=== PATIENT | female | born 1980 | race African-American/Black ===

== ENCOUNTER 2017-08-16 16:40 | Emergency (ER) | payer MEDICAID, OTHER ==
[~2017-08-16 16:40] MED LIST: ISOVUE-370 76%-LOCM 1 ML ONE
[2017-08-16 17:24] LABS: #Basophils 0.1 thou/uL (0.0-0.2); #Eosinphils 0.2 thou/uL (0.0-0.7); #Lymphocytes 2.6 thou/uL (1.20-3.40); #Monocytes 0.5 thou/uL (0.11-0.59); #Neutrophils 5.5 thou/uL (1.40-6.50); %Basophils 0.8 % (0.0-1.0); %Eosinophils 1.7 % (0.0-10.0); %Lymphocytes 29.7 % (21.0-51.0); %Monocytes 5.9 % (0.0-10.0); %Neutrophils 61.9 % (42.0-75.0); Hemoglobin 14.5 g/dL (12.0-16.0); Mean Corpuscular HGB CONC 34.5 g/dL (32.0-36.0); Mean Corpuscular Hemoglobin 30.6 pg (27.0-31.0); Mean Corpuscular Volume 88.7 fL (78.0-98.0); Mean Platelet Volume 8.3 fL (7.4-10.4); Platelet Count 283 thou/uL (130-400); RBC Distribution Width 12.6 % (11.5-14.5); Red Blood Cell (RBC) Count 4.74 mill/uL (4.20-5.40); White Blood Cell (WBC) Count 8.8 thou/uL (4.8-10.8)
[2017-08-16 17:54] LABS: ALT (SGPT) 16 U/L (8-55); AST (SGOT) 23 U/L (5-34); Albumin 4.3 g/dL (3.5-5.0); Alkaline Phosphatase 86 U/L (40-150); Anion Gap 16 mmol/L (10-20); BUN (Urea Nitrogen) 12 mg/dL (7.0-18.7); Bilirubin, Total 0.3 mg/dL (0.2-1.2); CK (CPK) 87 U/L (29-168); Calc. Creatinine Clearance 0 mL/min (70-130); Calcium 9.8 mg/dL (7.8-10.44); Carbon Dioxide 20 mmol/L (22-29); Chloride 104 mmol/L (98-107); Estimated GFR-MDRD Greater than 90; Glucose 117 mg/dL (70-105); Potassium 4.3 mmol/L (3.5-5.1); Protein, Total 8.3 g/dL (6.0-8.3); Sodium 136 mmol/L (136-145)
[2017-08-16 17:55] LABS: CKMB 0.6 ng/mL (0-6.6); Troponin I Less than 0.010 ng/mL (< 0.028)
--- NOTE | 2017-08-16 18:33 | RAD ---
CHEST ONE VIEW: HISTORY: Pain. COMPARISON: 05/27/2016 FINDINGS: Normal cardiac silhouette. The pulmonary vessels and hilum are normal. The costophrenic angles are clear. Scarring in the right lung base is noted. No pneumothorax or osseous abnormalities. IMPRESSION: No acute cardiopulmonary process. POS: [facility]
--- NOTE | 2017-08-16 23:18 | CT ---
CT ANGIOGRAM CHEST: HISTORY: Difficulty breathing. Intermittent chest pain. Lightheadedness and headache. COMPARISON: 02/01/2016 TECHNIQUE: A CT angiogram of the chest is performed in the axial plane. Three-dimensional reformatted images ar e submitted for interpretation. FINDINGS: No mediastinal mass, lymphadenopathy, or hematoma. Heart size is within normal limits. No significa nt pericardial fluid. The thoracic aorta and upper abdominal aorta have a normal caliber. No periao rtic fat stranding. The visualized upper solid organs are unremarkable. The trachea and central bronchi are patent. There are patchy ground glass opacities throughout the l edna parenchyma. There is evidence of blebs in the superior segment of the right lower lobe, with adj acent parenchymal opacification due to scar. These findings are similar to the previous CT. There i s no pleural effusion or pneumothorax. There are no lytic or blastic lesions in the osseous structures. Adequate contrast opacification in the pulmonary arterial system, to the level of the segmental arter ies. No filling defect to suggest thromboembolism. IMPRESSION: 1. No evidence of pulmonary artery embolism to the level of the segmental arteries. 2. Ground glass opacities. Correlate for pulmonary edema. 3. Chronic changes in the right lower lobe. POS: [facility]
== END 2017-08-16 21:10 | disposition home or self-care (01) ==
LOC: ERS 16:40
DX: R07.89 Other chest pain (principal); Z71.6 Tobacco abuse counseling; J45.909 Unspecified asthma, uncomplicated; F17.210 Nicotine dependence, cigarettes, uncomplicated
CPT/HCPCS: 71045; 71275; 80053; 82553; 84484; 85025; 85379; 93005; 96360; 96361; 99406

== ENCOUNTER 2018-01-10 12:23 | Emergency (ER) | payer MEDICAID, SELFPAY ==
[2018-01-10 13:02] LABS: #Basophils 0.1 thou/uL (0.0-0.2); #Eosinphils 0.1 thou/uL (0.0-0.7); #Lymphocytes 1.7 thou/uL (1.20-3.40); #Monocytes 0.4 thou/uL (0.11-0.59); #Neutrophils 3.6 thou/uL (1.40-6.50); %Eosinophils 2.1 % (0.0-10.0); %Lymphocytes 29.4 % (21.0-51.0); %Monocytes 7.2 % (0.0-10.0); %Neutrophils 60.3 % (42.0-75.0); Hemoglobin 14.7 g/dL (12.0-16.0); Mean Corpuscular HGB CONC 34.8 g/dL (32.0-36.0); Mean Corpuscular Hemoglobin 30.5 pg (27.0-31.0); Mean Corpuscular Volume 87.6 fL (78.0-98.0); Mean Platelet Volume 8.6 fL (7.4-10.4); Platelet Count 285 thou/uL (130-400); RBC Distribution Width 12.9 % (11.5-14.5); Red Blood Cell (RBC) Count 4.83 mill/uL (4.20-5.40); White Blood Cell (WBC) Count 5.9 thou/uL (4.8-10.8)
[2018-01-10 13:21] LABS: Troponin I Less than 0.010 ng/mL (< 0.028)
[2018-01-10 13:26] LABS: ALT (SGPT) 32 U/L (8-55); AST (SGOT) 24 U/L (5-34); Albumin 4.2 g/dL (3.5-5.0); Alkaline Phosphatase 81 U/L (40-150); Anion Gap 13 mmol/L (10-20); BUN (Urea Nitrogen) 8 mg/dL (7.0-18.7); Bilirubin, Total 0.6 mg/dL (0.2-1.2); CK (CPK) 140 U/L (29-168); Calc. Creatinine Clearance 0 mL/min (70-130); Calcium 9.2 mg/dL (7.8-10.44); Carbon Dioxide 24 mmol/L (22-29); Chloride 103 mmol/L (98-107); Estimated GFR-MDRD Greater than 90; Glucose 106 mg/dL (70-105); Potassium 3.6 mmol/L (3.5-5.1); Protein, Total 8.2 g/dL (6.0-8.3); Sodium 136 mmol/L (136-145)
--- NOTE | 2018-01-10 13:57 | RAD ---
CHEST 1 VIEW PORTABLE: HISTORY: A 37-year-old female with a history of increasing shortness of breath for several says, dyspnea. COMPARISON: 08/16/2017. FINDINGS: Monitor leads overlie the chest. Stable vertically oriented linear parenchymal changes in the right lower lung zone unchanged from prior study. No confluent pneumonia, overt edema, or pleural effusion . Stable chronic changes in the right base. No other significant acute process. Unchanged from 08/17/19 18. POS: [facility]
== END 2018-01-10 14:32 | disposition home or self-care (01) ==
LOC: ERS 12:23
DX: J20.9 Acute bronchitis, unspecified (principal); J45.909 Unspecified asthma, uncomplicated; F17.210 Nicotine dependence, cigarettes, uncomplicated
CPT/HCPCS: 71045; 80053; 82553; 83690; 84484; 85025; 85379; 93005; 94640; 94664; J7620

== ENCOUNTER 2018-10-25 18:30 | Emergency (ER) | payer OTHER, SELFPAY ==
[2018-10-25 19:19] LABS: #Eosinphils 0.2 thou/uL (0.0-0.7); #Lymphocytes 2.7 thou/uL (1.20-3.40); #Monocytes 0.5 thou/uL (0.11-0.59); #Neutrophils 4.3 thou/uL (1.40-6.50); %Basophils 0.6 % (0.0-1.0); %Eosinophils 2.2 % (0.0-10.0); %Monocytes 6.7 % (0.0-10.0); %Neutrophils 55.4 % (42.0-75.0); Hemoglobin 15.2 g/dL (12.0-16.0); Mean Corpuscular HGB CONC 35.4 g/dL (32.0-36.0); Mean Corpuscular Hemoglobin 31.2 pg (27.0-31.0); Mean Corpuscular Volume 88.3 fL (78.0-98.0); Mean Platelet Volume 8.1 fL (7.4-10.4); Platelet Count 316 thou/uL (130-400); RBC Distribution Width 12.5 % (11.5-14.5); Red Blood Cell (RBC) Count 4.88 mill/uL (4.20-5.40); White Blood Cell (WBC) Count 7.8 thou/uL (4.8-10.8)
--- NOTE | 2018-10-25 19:26 | RAD ---
1 VIEW CHEST: Date: 10/25/18 HISTORY: Pain. COMPARISON: 01/10/18. FINDINGS: Normal cardiac silhouette. Pulmonary vessels and hilum are normal. Costophrenic angles are clear. Int erval scarring in right lung base. No pneumothorax or acute osseous abnormalities. IMPRESSION: No acute cardiopulmonary process. POS: [facility]
[2018-10-25 19:34] LABS: ALT (SGPT) 18 U/L (8-55); AST (SGOT) 16 U/L (5-34); Albumin 4.3 g/dL (3.5-5.0); Alkaline Phosphatase 89 U/L (40-150); Anion Gap 9 mmol/L (10-20); BUN (Urea Nitrogen) 8 mg/dL (7.0-18.7); Bilirubin, Total 0.3 mg/dL (0.2-1.2); CK (CPK) 102 U/L (29-168); Calc. Creatinine Clearance 0 mL/min (70-130); Calcium 9.7 mg/dL (7.8-10.44); Carbon Dioxide 30 mmol/L (22-29); Chloride 101 mmol/L (98-107); Estimated GFR-MDRD 85; Globulin 3.7 g/dL (2.4-3.5); Glucose 112 mg/dL (70-105); Potassium 3.4 mmol/L (3.5-5.1); Sodium 137 mmol/L (136-145)
[2018-10-25 19:47] LABS: BHCG - Serum Negative (NEGATIVE); Pregs Control Background? CLEAR/WHITE (CLR/WHITE); Pregs Control Bar Appear? YES (CONTROL BAR)
--- NOTE | 2018-10-25 20:58 | CT ---
CT ANGIOGRAM CHEST: HISTORY: Intermittent chest pain, radiating to the left arm. COMPARISON: 08/16/2017 TECHNIQUE: CT angiogram of the chest is performed in the axial plane. Three-dimensional reformatted images are submitted for interpretation. FINDINGS: No mediastinal mass, lymphadenopathy or hematoma. The visualized inferior neck and axilla are unrema rkable. Heart size is within normal limits. No pericardial fluid. The visualized aorta has a shubham l caliber. No periaortic fat stranding. The visualized upper abdomen is unremarkable. The trachea and central bronchi are patent. Patchy ground glass opacities are once again demonstrate d. There is scarring in the right lower lobe. Atelectatic changes in both lung bases are noted. No masses or consolidation in the lung parenchyma. Pleural effusion: None. Pneumothorax: None. Osseous structures: There are no lytic or blastic lesions in the osseous structures. Limited evaluation of the pulmonary arterial system due to timing of contrast bolus. There is adequa te contrast opacification of the central pulmonary arterial system. Evaluation of the lobar, segment , and subsegmental arteries is limited. IMPRESSION: 1. No evidence of pulmonary artery embolism to the level of the central pulmonary arteries. The lob ar, segmental and subsegmental arteries cannot be assessed due to poor timing of bolus. 2. Chronic change in the lung parenchyma. Stable ground glass opacities. Scarring in the right low er lobe. POS: [facility]
[2018-10-25 21:05] LABS: Troponin I Less than 0.010 ng/mL (< 0.028)
--- NOTE | 2018-10-30 15:26 | EKG ---
Test Reason : Blood Pressure : / mmHG Vent. Rate : 088 BPM Atrial Rate : 088 BPM P-R Int : 110 ms QRS Dur : 078 ms QT Int : 346 ms P-R-T Axes : 054 040 104 degrees QTc Int : 418 ms Sinus rhythm with short DE Septal infarct , age undetermined T wave abnormality, consider anterolateral ischemia Abnormal ECG Confirmed by NICOLE SCHULTZ, PAYTON ([id number]), metropolitan editor BLANCHE KRAUS ([id number]) on 10/30/2018 3:25:29 PM Referred By: Confirmed By:PAYTON RIVERA MD
== END 2018-10-25 21:30 | disposition home or self-care (01) ==
LOC: ERS 18:30
DX: R07.89 Other chest pain (principal); J45.909 Unspecified asthma, uncomplicated; F17.210 Nicotine dependence, cigarettes, uncomplicated
CPT/HCPCS: 36415; 71045; 71275; 80053; 82550; 84484; 84703; 85025; 85379; 93005; 96360; Q9966

== ENCOUNTER 2018-11-15 06:50 | Outpatient (CLI) | payer OTHER ==
--- NOTE | 2018-11-15 11:02 | ULT ---
TRANSVAGINAL AND TRANSABDOMINAL PELVIC ULTRASOUND: INDICATION: History of an enlarged uterus. COMPARISON: Prior pelvic ultrasound dated 08/24/2016. TECHNIQUE: Richey scale, color Doppler, and spectral Doppler images were obtained of the pelvis. FINDINGS: The uterus measures 10.8 x 4.9 x 4.5 cm. On prior examination, the uterus measured 10.9 x 4.7 x 5.2 cm. This has not appreciably changed in size. Endometrial stripe measures 1.2 cm which is within no rmal limits for a premenopausal female. The left ovary demonstrates 2 follicular cysts, 1 measuring up to 2.4 cm. The left ovary in total measures 3.7 x 3.2 x 2.9 cm. There is normal flow to the left ovary. No free fluid is evident. The right ovary is not well seen. On the previous examination, t he expected right ovary was behind the uterus. A similar structure is seen behind the uterus on the provided sagittal images on the transvaginal examination measuring approximately 2.4 x 1.1 cm. This is likely the right ovary. This appears similar to the prior exam. IMPRESSION: 1. Stable size and appearance of the uterus. 2. Left ovarian follicular cyst. POS: [facility]
== END 2018-11-15 06:51 | disposition home or self-care (01) ==
LOC: ULT 06:50
PROVIDERS: ATTEND Family Medicine
DX: N85.2 Hypertrophy of uterus (principal); N83.02 Follicular cyst of left ovary
CPT/HCPCS: 76856

== ENCOUNTER 2019-03-09 08:29 | Emergency (ER) | payer OTHER ==
--- NOTE | 2019-03-09 09:15 | RAD ---
2 VIEW CHEST: Date: 03/09/2019 HISTORY: Chest pain. COMPARISON: 10/25/2018. FINDINGS: Linear opacity in the right lower lobe extending to the hemidiaphragm is a stable finding. Lungs othe rwise remain clear and unchanged. Heart and mediastinum unremarkable. IMPRESSION: No acute process. Linear stranding in the right lower lobe posteriorly has been previously documented . POS: [facility]
[2019-03-09] MEDS ORDERED: Ondansetron ODT 4 MG TAB ONE (09:21)
[2019-03-09] MEDS ORDERED: Aspirin Chewable 81 MG TAB ONE (09:21)
[2019-03-09] MEDS ORDERED: Lidocaine Viscous Sol 2% 15 ml UD Cup ONE (09:21)
[2019-03-09] MEDS ORDERED: Mag-Al 1200 mg/1200 mg/30 ML UDCUP ONE (09:21)
[2019-03-09 09:34] LABS: #Basophils 0.1 thou/uL (0.0-0.2); #Eosinphils 0.1 thou/uL (0.0-0.7); #Lymphocytes 1.8 thou/uL (1.20-3.40); #Monocytes 0.4 thou/uL (0.11-0.59); #Neutrophils 4.9 thou/uL (1.40-6.50); %Basophils 1.1 % (0.0-1.0); %Lymphocytes 23.9 % (21.0-51.0); %Monocytes 6.1 % (0.0-10.0); Hemoglobin 16.3 g/dL (12.0-16.0); Mean Corpuscular HGB CONC 34.1 g/dL (32.0-36.0); Mean Corpuscular Hemoglobin 30.3 pg (27.0-31.0); Mean Platelet Volume 8.5 fL (7.4-10.4); Platelet Count 327 thou/uL (130-400); RBC Distribution Width 12.5 % (11.5-14.5); Red Blood Cell (RBC) Count 5.39 mill/uL (4.20-5.40); White Blood Cell (WBC) Count 7.3 thou/uL (4.8-10.8)
[2019-03-09 09:41] LABS: BHCG - Serum Negative (NEGATIVE); Pregs Control Background? CLEAR/WHITE (CLR/WHITE); Pregs Control Bar Appear? YES (CONTROL BAR)
[2019-03-09] MEDS ORDERED: Albuterol Sulfate 2.5 mg/3 ml Neb ONE (09:59)
[2019-03-09 10:04] LABS: Anion Gap 17 mmol/L (10-20); Carbon Dioxide 22 mmol/L (22-29); Chloride 104 mmol/L (98-107); Potassium 3.5 mmol/L (3.5-5.1); Sodium 139 mmol/L (136-145)
[2019-03-09 10:05] LABS: ALT (SGPT) 19 U/L (8-55); AST (SGOT) 19 U/L (5-34); Albumin 4.6 g/dL (3.5-5.0); Alkaline Phosphatase 96 U/L (40-110); BUN (Urea Nitrogen) 8 mg/dL (7.0-18.7); Bilirubin, Total 0.4 mg/dL (0.2-1.2); Calc. Creatinine Clearance 0 mL/min (70-130); Calcium 9.5 mg/dL (7.8-10.44); Estimated GFR-MDRD 79; Glucose 74 mg/dL (70-105); Lipase 40 U/L (8-78); Protein, Total 8.6 g/dL (6.0-8.3)
== END 2019-03-09 10:43 | disposition home or self-care (01) ==
LOC: ERS 08:29
DX: J20.9 Acute bronchitis, unspecified (principal); F17.210 Nicotine dependence, cigarettes, uncomplicated; Z87.442 Personal history of urinary calculi
CPT/HCPCS: 36415; 71046; 80053; 83690; 84484; 84703; 85025; 93005; 94640; 94760; J7611; J7620; Q0162

== ENCOUNTER 2019-03-13 18:45 | Emergency (ER) | payer OTHER | END 2019-03-13 19:04 | disposition left against medical advice (07) | LOC: ERS 18:45 | DX: Z53.21 Procedure and treatment not carried out due to patient leaving prior to being seen by health care provider (principal) ==

== ENCOUNTER 2019-04-18 17:44 | Emergency (ER) | payer OTHER | END 2019-04-18 18:36 | disposition home or self-care (01) | LOC: ERS 17:44 | DX: J06.9 Acute upper respiratory infection, unspecified (principal); J30.9 Allergic rhinitis, unspecified; H66.90 Otitis media, unspecified, unspecified ear; F17.210 Nicotine dependence, cigarettes, uncomplicated; Z87.01 Personal history of pneumonia (recurrent) | CPT/HCPCS: 99283 ==

== ENCOUNTER 2019-05-05 16:06 | Emergency (ER) | payer OTHER | END 2019-05-05 16:40 | disposition home or self-care (01) | LOC: ERS 16:06 | DX: J06.9 Acute upper respiratory infection, unspecified (principal); N61.1 Abscess of the breast and nipple; J45.909 Unspecified asthma, uncomplicated; F17.210 Nicotine dependence, cigarettes, uncomplicated | CPT/HCPCS: 99283 ==

== ENCOUNTER 2019-05-08 10:56 | Emergency (ER) | payer OTHER | END 2019-05-08 11:59 | disposition home or self-care (01) | LOC: ERS 10:56 | DX: R11.0 Nausea (principal); J45.909 Unspecified asthma, uncomplicated; F17.210 Nicotine dependence, cigarettes, uncomplicated; Z79.899 Other long term (current) drug therapy | CPT/HCPCS: 99281 ==

== ENCOUNTER 2019-05-09 19:32 | Emergency (ER) | payer OTHER ==
[~2019-05-09 19:32] MED LIST changes: -ISOVUE-370 76%-LOCM 1 ML ONE; +Iopamidol 370 76% 100 ML VIAL ONE
[2019-05-09 20:16] LABS: #Basophils 0.1 thou/uL (0.0-0.2); #Eosinphils 0.2 thou/uL (0.0-0.7); #Lymphocytes 2.4 thou/uL (1.20-3.40); #Monocytes 0.6 thou/uL (0.11-0.59); #Neutrophils 4.4 thou/uL (1.40-6.50); %Basophils 0.9 % (0.0-1.0); %Eosinophils 2.2 % (0.0-10.0); %Lymphocytes 31.8 % (21.0-51.0); %Monocytes 7.5 % (0.0-10.0); %Neutrophils 57.6 % (42.0-75.0); Hemoglobin 14.2 g/dL (12.0-16.0); Mean Corpuscular HGB CONC 35.1 g/dL (32.0-36.0); Mean Corpuscular Hemoglobin 30.9 pg (27.0-31.0); Mean Corpuscular Volume 87.9 fL (78.0-98.0); Mean Platelet Volume 8.4 fL (7.4-10.4); Platelet Count 321 thou/uL (130-400); RBC Distribution Width 12.4 % (11.5-14.5); Red Blood Cell (RBC) Count 4.59 mill/uL (4.20-5.40); White Blood Cell (WBC) Count 7.7 thou/uL (4.8-10.8)
[2019-05-09 20:26] LABS: Bicarbonate (HCO3v) 26.6 mmol/L (22.0-28.0); CO2 Tension (PvCO2) 40.7 mmHg (40.0-50.0); Chloride 99 mmol/L (98-107); Hemoglobin - Calc 14.6 g/dL (12.0-16.0); Potassium 3.2 mmol/L (3.5-5.1); Sodium 137 mmol/L (138-145); T. Carbon Dioxide 27.9 mmol/L (22.0-28.0); vO2 Saturation-calc 97.1 % (60.0-85.0)
[2019-05-09 20:49] LABS: ALT (SGPT) 14 U/L (8-55); AST (SGOT) 18 U/L (5-34); Albumin 3.9 g/dL (3.5-5.0); Alkaline Phosphatase 82 U/L (40-110); Anion Gap 14 mmol/L (10-20); BUN (Urea Nitrogen) 11 mg/dL (7.0-18.7); Bilirubin, Total 0.2 mg/dL (0.2-1.2); Calc. Creatinine Clearance 0 mL/min (70-130); Calcium 9.2 mg/dL (7.8-10.44); Carbon Dioxide 25 mmol/L (22-29); Chloride 100 mmol/L (98-107); Estimated GFR-MDRD Greater than 90; Globulin 3.5 g/dL (2.4-3.5); Glucose 126 mg/dL (70-105); Protein, Total 7.4 g/dL (6.0-8.3); Sodium 135 mmol/L (136-145)
[2019-05-09 21:02] LABS: CK (CPK) 127 U/L (29-168); Lipase 52 U/L (8-78)
--- NOTE | 2019-05-09 21:04 | CT ---
CT ANGIOGRAM THORAX WITH CONTRAST: (CTA pulmonary angiogram) DATE: 05/09/2019 HISTORY: 38-year-old female with dyspnea, chest pain, and cough COMPARISON: 10/25/2018 TECHNIQUE: IV injection of iodinated contrast. Scan acquisition timing attempted to coincide with iodinated contrast bolus reaching maximal density in pulmonary arteries. 3-D MIP reconstructions. FINDINGS: No evidence of pulmonary thromboembolism. No thoracic aortic aneurysm or dissection. No cardiomegaly or pericardial effusion. No mediastinal lymphadenopathy. No pleural effusion or pneumothorax. Pulmonary scarring throughout much of the right lower lobe, with architectural distortion and centril obular emphysematous changes in the right lower lobe. Centrilobular emphysematous changes to a lesser degree in the contralateral left lower lobe. No bullae. No consolidation. The groundglass dens ities mentioned previously could be due to an breathing motion artifact. They are no longer present. Otherwise, no interval change. Trachea and major bronchi are patent and clear. Multiple mild ly enlarged right axillary lymph nodes. IMPRESSION: 1. No pulmonary thromboembolism. 2. Centrilobular emphysema in the bilateral lower lobes. 3. Extensive pulmonary scarring of right lower lobe.
--- NOTE | 2019-05-09 21:28 | RAD ---
RADIOGRAPH CHEST 1 VIEW: DATE: 05/09/2019 HISTORY: 38-year-old female with chest pain and cough FINDINGS: There are no airspace densities, pulmonary edema, pneumothorax, or cardiomegaly. The lateral costophr enic angles are sharp. Prominent vertically oriented pulmonary scar in right lower lobe. No interval change overall compared to 10/25/2018 IMPRESSION: 1. No acute cardiopulmonary findings. 2. Right lower lobe pulmonary scar.
[2019-05-09 22:55] LABS: Bacteria/HPF 3+ HPF (None Seen); Bilirubin Negative (Negative); Blood, Urine Negative (Negative); Clarity Clear (Clear); Glucose, Urine (Dipstick) Normal (Negative); Leukocyte 500 Leu/uL (Negative); Nitrite Negative (Negative); Protein, Urine (Dipstick) Negative (Neg-Trace); Squamous Epithelial 0-3 HPF (0-3); Urobilinogen Normal mg/dL (Less than 2); WBC/HPF 21-50 HPF (0-3)
[2019-05-09 22:56] LABS: Pregnancy Test - Urine (BHCG) Negative (Negative); Pregu Control Background? CLEAR/WHITE (CLR/WHITE); Pregu Control Bar Appear? YES (CONTROL BAR); Specific Gravity 1.053 (1.002-1.036)
--- NOTE | 2019-05-12 11:03 | EKG ---
Test Reason : Blood Pressure : / mmHG Vent. Rate : 104 BPM Atrial Rate : 104 BPM P-R Int : 130 ms QRS Dur : 078 ms QT Int : 328 ms P-R-T Axes : 067 062 -28 degrees QTc Int : 431 ms Sinus tachycardia T wave abnormality, consider anterolateral ischemia Abnormal ECG Confirmed by SHERYL SCHULTZ, MARLY ([id number]), business editor YASH STEIN ([id number]) on 05/12/2019 11:03:07 AM Referred By: Confirmed By:MARLY SAUCEDO MD
== END 2019-05-10 00:34 | disposition home or self-care (01) ==
LOC: ERS 19:32
DX: J44.1 Chronic obstructive pulmonary disease with (acute) exacerbation (principal); N39.0 Urinary tract infection, site not specified; F17.210 Nicotine dependence, cigarettes, uncomplicated; Z71.6 Tobacco abuse counseling
CPT/HCPCS: 71045; 71275; 80053; 81003; 81015; 81025; 82330; 82550; 82803; 83690; 83880; 84484; 85025; 85379; 93005; 94760; 96360; 99406; Q9967

== ENCOUNTER 2019-10-26 12:27 | Outpatient (CLI) | payer OTHER ==
--- NOTE | 2019-10-26 13:00 | RAD ---
XR Chest Pa Lat STANDARD HISTORY: Dyspnea COMPARISON: 03/09/2019 FINDINGS: The heart size is normal. The lungs are well expanded without focal areas of consolidation, pneumothorax or pleural effusions. Large linear scarring in the right lower lobe is again seen.. IMPRESSION: Stable exam. No radiographic evidence of acute cardiopulmonary process.
== END 2019-10-26 12:28 | disposition home or self-care (01) ==
LOC: BICRAD 12:27
PROVIDERS: ATTEND Internal Medicine Pulmonary Disease
DX: R06.00 Dyspnea, unspecified (principal)
CPT/HCPCS: 71046

== ENCOUNTER 2019-12-27 14:04 | Outpatient (CLI) | payer OTHER ==
--- NOTE | 2019-12-27 14:42 | MMO ---
Bilateral MAMMO Bilat Diag [facility]. CLINICAL HISTORY: Patient is 39 years old and is seen for diagnostic exam. The patient has the following family history of breast cancer: mother, at age 43. The patient has no personal history of cancer. VIEWS: The views performed were: bilateral craniocaudal with tomosynthesis; bilateral mediolateral oblique with tomosynthesis; and bilateral mediolateral with tomosynthesis. This study has been interpreted with the assistance of computer-aided detection. MAMMOGRAM FINDINGS: There are scattered fibroglandular densities. There are benign appearing calcifications seen in both breasts. There are no suspicious masses, suspicious calcifications, or new areas of architectural distortion. IMPRESSION: THERE IS NO MAMMOGRAPHIC EVIDENCE OF MALIGNANCY. A ROUTINE FOLLOW-UP MAMMOGRAM AT AGE 42 IS RECOMMENDED. THE RESULTS OF THIS EXAM WERE SENT TO THE PATIENT. ACR BI-RADS Category 2 - Benign finding MAMMOGRAPHY NOTE: 1. A negative mammogram report should not delay a biopsy if a dominant of clinically suspicious mass is present. 2. Approximately 10% to 15% of breast cancers are not detected by mammography. 3. Adenosis and dense breasts may obscure an underlying neoplasm. Reported by: DYLON DE LUNA MD Electonically Signed: [id number]
== END 2019-12-27 14:05 | disposition home or self-care (01) ==
LOC: BICMAMMO 14:04
PROVIDERS: ATTEND Family Medicine
DX: N63.10 Unspecified lump in the right breast, unspecified quadrant (principal)
CPT/HCPCS: 77066; G0279

== ENCOUNTER 2020-02-25 09:23 | Emergency (ER) | payer OTHER | END 2020-02-25 09:37 | disposition home or self-care (01) | LOC: ERS 09:23 | DX: M54.6 Pain in thoracic spine (principal); F17.210 Nicotine dependence, cigarettes, uncomplicated | CPT/HCPCS: 99281 ==

== ENCOUNTER 2020-12-04 11:41 | Emergency (ER) | payer OTHER | END 2020-12-04 12:34 | disposition home or self-care (01) | LOC: ERS 11:41 | DX: L30.9 Dermatitis, unspecified (principal); L29.9 Pruritus, unspecified; R21 Rash and other nonspecific skin eruption; J45.909 Unspecified asthma, uncomplicated; F17.210 Nicotine dependence, cigarettes, uncomplicated | CPT/HCPCS: 99282 ==

== ENCOUNTER 2021-04-19 02:28 | Emergency (ER) | payer OTHER ==
[2021-04-19 03:03] LABS: #Eosinphils 0.2 thou/uL (0.0-0.7); #Lymphocytes 2.1 thou/uL (1.20-3.40); #Monocytes 0.7 thou/uL (0.11-0.59); #Neutrophils 5.3 thou/uL (1.40-6.50); %Basophils 0.5 % (0.0-1.0); %Eosinophils 2.1 % (0.0-10.0); %Lymphocytes 25.4 % (21.0-51.0); %Monocytes 8.3 % (0.0-10.0); %Neutrophils 63.7 % (42.0-75.0); Hemoglobin 13.8 g/dL (12.0-16.0); Mean Corpuscular HGB CONC 34.3 g/dL (32.0-36.0); Mean Corpuscular Hemoglobin 31.1 pg (27.0-31.0); Mean Corpuscular Volume 90.8 fL (78.0-98.0); Mean Platelet Volume 7.9 fL (7.4-10.4); Platelet Count 297 thou/uL (130-400); RBC Distribution Width 12.7 % (11.5-14.5); Red Blood Cell (RBC) Count 4.44 mill/uL (4.20-5.40); White Blood Cell (WBC) Count 8.3 thou/uL (4.8-10.8)
[2021-04-19] MEDS ORDERED: Acetaminophen 500 MG TAB ONE (03:03)
[2021-04-19 03:27] LABS: ALT (SGPT) 15 U/L (8-55); AST (SGOT) 20 U/L (5-34); Albumin 3.8 g/dL (3.5-5.0); Alkaline Phosphatase 74 U/L (40-110); Anion Gap 14 mmol/L (10-20); BUN (Urea Nitrogen) 11 mg/dL (7.0-18.7); Bilirubin, Total 0.2 mg/dL (0.2-1.2); Calc. Creatinine Clearance 0 mL/min (70-130); Calcium 8.9 mg/dL (7.8-10.44); Carbon Dioxide 22 mmol/L (22-29); Chloride 107 mmol/L (98-107); Globulin 3.6 g/dL (2.4-3.5); Glucose 102 mg/dL (70-105); Potassium 4.3 mmol/L (3.5-5.1); Protein, Total 7.4 g/dL (6.0-8.3); Sodium 139 mmol/L (136-145)
[2021-04-19 05:55] LABS: Troponin I Less than 0.010 ng/mL (< 0.028)
== END 2021-04-19 06:20 | disposition home or self-care (01) ==
LOC: ERS 02:28
DX: R07.89 Other chest pain (principal); J45.909 Unspecified asthma, uncomplicated; N83.202 Unspecified ovarian cyst, left side; F17.210 Nicotine dependence, cigarettes, uncomplicated; E11.9 Type 2 diabetes mellitus without complications; Z79.84 Long term (current) use of oral hypoglycemic drugs; Z87.442 Personal history of urinary calculi
CPT/HCPCS: 36415; 71045; 80053; 84484; 85025; 93005; J7620

== ENCOUNTER 2022-12-02 10:18 | Emergency (ER) | payer MEDICAID, OTHER, SELFPAY ==
[~2022-12-02 10:18] MED LIST changes: -Iopamidol 370 76% 100 ML VIAL ONE; +Iopamidol-370 76% 500 ML MDV (1 ML CHARGE) ONE
[2022-12-02] MEDS ORDERED: Ipratropium/Albuterol 3 ML NEB ONE (11:13)
[2022-12-02] MEDS ORDERED: methylPREDNISolone Sod Succ/PF 125 MG/2 ML VIAL ONE (12:58)
[2022-12-02] MEDS ORDERED: Morphine 4 MG/ML VIAL ONE (12:58)
[2022-12-02 13:38] LABS: #Eosinphils 0.3 thou/uL (0.0-0.7); #Monocytes 0.6 thou/uL (0.11-0.59); #Neutrophils 3.5 thou/uL (1.40-6.50); %Basophils 0.5 % (0.0-1.0); %Eosinophils 4.1 % (0.0-10.0); %Lymphocytes 27.1 % (21.0-51.0); %Monocytes 9.9 % (0.0-10.0); %Neutrophils 58.1 % (42.0-75.0); Hemoglobin 13.1 g/dL (12.0-16.0); Mean Corpuscular HGB CONC 34.5 g/dL (32.0-36.0); Mean Corpuscular Hemoglobin 29.8 pg (27.0-31.0); Mean Corpuscular Volume 86.4 fl (78.0-98.0); Mean Platelet Volume 10.4 fL (7.4-10.4); Platelet Count 298 10x3/uL (130-400); RBC Distribution Width 13.3 % (11.5-14.5); White Blood Cell (WBC) Count 6.1 10x3/uL (4.8-10.8)
[2022-12-02 13:50] LABS: BHCG - Serum Negative (NEGATIVE); Pregs Control Background? CLEAR/WHITE (CLR/WHITE); Pregs Control Bar Appear? YES (CONTROL BAR)
[2022-12-02 13:58] LABS: ALT (SGPT) 18 U/L (8-55); AST (SGOT) 17 U/L (5-34); Albumin 4.1 g/dL (3.5-5.0); Alkaline Phosphatase 83 U/L (40-110); Anion Gap 13 mmol/L (10-20); BUN (Urea Nitrogen) 10 mg/dL (7.0-18.7); Bilirubin, Total 0.2 mg/dL (0.2-1.2); Calc. Creatinine Clearance 0 mL/min (70-130); Calcium 9.3 mg/dL (7.8-10.44); Carbon Dioxide 25 mmol/L (22-29); Chloride 103 mmol/L (98-107); Estimated GFR 100; Glucose 103 mg/dL (70-105); Potassium 3.7 mmol/L (3.5-5.1); Protein, Total 7.1 g/dL (6.0-8.3); Sodium 137 mmol/L (136-145)
[2022-12-02 14:02] LABS: Troponin I Less than 0.010 ng/mL (< 0.028)
== END 2022-12-02 15:39 | disposition home or self-care (01) ==
LOC: ERS 10:18
DX: J44.1 Chronic obstructive pulmonary disease with (acute) exacerbation (principal); F17.210 Nicotine dependence, cigarettes, uncomplicated
CPT/HCPCS: 36415; 71275; 80053; 83880; 84484; 84703; 85025; 93005; 96374; 96375; J2270; J2930; J7620; Q9967

== ENCOUNTER 2022-12-08 22:03 | Inpatient (IN) | payer OTHER ==
[2022-12-08 22:31] LABS: #Eosinphils 0.2 thou/uL (0.0-0.7); #Monocytes 0.8 thou/uL (0.11-0.59); #Neutrophils 9.6 thou/uL (1.40-6.50); %Basophils 0.2 % (0.0-1.0); %Eosinophils 1.6 % (0.0-10.0); %Lymphocytes 12.4 % (21.0-51.0); %Monocytes 6.5 % (0.0-10.0); %Neutrophils 78.7 % (42.0-75.0); Hematocrit 40.7 % (36.0-47.0); Hemoglobin 14.1 g/dL (12.0-16.0); Mean Corpuscular HGB CONC 34.6 g/dL (32.0-36.0); Mean Corpuscular Hemoglobin 30.1 pg (27.0-31.0); Mean Corpuscular Volume 86.8 fl (78.0-98.0); Mean Platelet Volume 10.4 fL (7.4-10.4); Platelet Count 305 10x3/uL (130-400); Red Blood Cell (RBC) Count 4.69 mill/uL (4.20-5.40); White Blood Cell (WBC) Count 12.2 10x3/uL (4.8-10.8)
[2022-12-08 22:58] LABS: Troponin I Less than 0.010 ng/mL (< 0.028)
[2022-12-08 23:11] LABS: ALT (SGPT) 15 U/L (8-55); AST (SGOT) 14 U/L (5-34); Albumin 4.2 g/dL (3.5-5.0); Alkaline Phosphatase 84 U/L (40-110); Anion Gap 18 mmol/L (10-20); BUN (Urea Nitrogen) 9 mg/dL (7.0-18.7); Bilirubin, Total 0.2 mg/dL (0.2-1.2); Calc. Creatinine Clearance 0 mL/min (70-130); Calcium 9.1 mg/dL (7.8-10.44); Carbon Dioxide 16 mmol/L (22-29); Chloride 104 mmol/L (98-107); Estimated GFR 88; Globulin 3.5 g/dL (2.4-3.5); Glucose 161 mg/dL (70-105); Potassium 3.8 mmol/L (3.5-5.1); Protein, Total 7.7 g/dL (6.0-8.3); Sodium 134 mmol/L (136-145)
[2022-12-09] MEDS ORDERED: Ipratropium/Albuterol 3 ML NEB ONE ×2 (00:19→12:24)
[2022-12-09] MEDS ORDERED: methylPREDNISolone Sod Succ/PF 125 MG/2 ML VIAL ONE (00:52)
[2022-12-09] MEDS ORDERED: Aspirin Chewable 81 MG TAB ONE (00:52)
[2022-12-09] MEDS ORDERED: Ondansetron ODT 4 MG TAB ONE (01:06)
[2022-12-09 02:15] LABS: SARS-CoV-2 NAA Rapid Test Not Detected (NotDetected)
[2022-12-09] MEDS ORDERED: Ondansetron PF 4 MG/2 ML Vial IVP PRN (06:27)
[2022-12-09] MEDS ORDERED: Ipratropium/Albuterol 3 ML NEB NEB PRN (06:29)
[2022-12-09 06:46] LABS: Magnesium 1.8 mg/dL (1.6-2.6)
[2022-12-09 06:57] LABS: Troponin I Less than 0.010 ng/mL (< 0.028)
[2022-12-09 07:01] LABS: INR-International Normal Ratio 0.9; PTT 29.6 sec (22.9-36.1); Prothrombin Time 12.8 sec (12.0-14.7)
[2022-12-09 08:50] LABS: Hemoglobin A1c 5.4 % (4.0-6.0)
[2022-12-09] MEDS: Ipratropium/Albuterol 3 ML NEB NEB SCH ×5 (09:07→22:39)
[2022-12-09 09:10] LABS: Cardiac Risk 2.4 (Less than 4.5)
[2022-12-09] MEDS ORDERED: Furosemide 40 MG/4 ML VIAL ONE (10:06)
[2022-12-09] MEDS ORDERED: methylPREDNISolone Sod Succ 40 MG VIAL ONE (10:06)
[2022-12-09 10:21] LABS: Lactic Acid 1.9 mmol/L (0.5-2.2)
[2022-12-09 10:30] LABS: Troponin I Less than 0.010 ng/mL (< 0.028)
[2022-12-09] MEDS: methylPREDNISolone Sod Succ 40 MG VIAL IVP SCH ×3 (12:20→23:29)
[2022-12-09] MEDS ORDERED: Iopamidol-370 76% 500 ML MDV (1 ML CHARGE) ONE (13:19)
[2022-12-09] MEDS ORDERED: Acetaminophen 325 MG TAB ONE (17:41)
[2022-12-09] MEDS: Acetaminophen 325 MG TAB PO PRN (17:45)
[2022-12-09 21:45] VITALS: BMI 37.5
[2022-12-09] MEDS: Mometasone 200 MCG/Formoterol 5 MCG 120 PUFF INHALER INH SCH (22:39)
[2022-12-10] MEDS: Ipratropium/Albuterol 3 ML NEB NEB SCH ×6 (03:32→22:55)
[2022-12-10 05:11] LABS: #Monocytes 1.1 thou/uL (0.11-0.59); #Neutrophils 17.8 thou/uL (1.40-6.50); %Basophils 0.1 % (0.0-1.0); %Lymphocytes 4.7 % (21.0-51.0); %Monocytes 5.5 % (0.0-10.0); %Neutrophils 88.5 % (42.0-75.0); Hematocrit 38.7 % (36.0-47.0); Hemoglobin 13.3 g/dL (12.0-16.0); Mean Corpuscular HGB CONC 34.4 g/dL (32.0-36.0); Mean Corpuscular Hemoglobin 29.8 pg (27.0-31.0); Mean Corpuscular Volume 86.8 fl (78.0-98.0); Mean Platelet Volume 10.8 fL (7.4-10.4); Platelet Count 346 10x3/uL (130-400); RBC Distribution Width 13.6 % (11.5-14.5); Red Blood Cell (RBC) Count 4.46 mill/uL (4.20-5.40); White Blood Cell (WBC) Count 20.1 10x3/uL (4.8-10.8)
[2022-12-10 05:38] LABS: Anion Gap 16 mmol/L (10-20); BUN (Urea Nitrogen) 12 mg/dL (7.0-18.7); Calc. Creatinine Clearance 111 mL/min (70-130); Calcium 9.1 mg/dL (7.8-10.44); Carbon Dioxide 21 mmol/L (22-29); Chloride 103 mmol/L (98-107); Estimated GFR 94; Glucose 187 mg/dL (70-105); Potassium 3.4 mmol/L (3.5-5.1); Sodium 137 mmol/L (136-145)
[2022-12-10] MEDS: LevoFLOXacin 750 MG TAB PO SCH (06:00)
[2022-12-10] MEDS: methylPREDNISolone Sod Succ 40 MG VIAL IVP SCH ×2 (06:00→11:53)
[2022-12-10] MEDS: Mometasone 200 MCG/Formoterol 5 MCG 120 PUFF INHALER INH SCH ×2 (07:42→18:57)
[2022-12-10] MEDS: Acetaminophen 325 MG TAB PO PRN ×2 (08:24→20:23)
[2022-12-10] MEDS ORDERED: Benzonatate 100 MG CAP PO SCH (09:15)
[2022-12-10] MEDS ORDERED: Famotidine 20 MG TAB PO SCH (09:15)
[2022-12-10] MEDS: Benzonatate 100 MG CAP PO SCH ×2 (14:28→20:22)
[2022-12-10] MEDS ORDERED: Prochlorperazine Edisylate 10 MG in Sodium Chloride 0.9% 50 ML IVPB PRN (14:34)
[2022-12-10] MEDS ORDERED: Ondansetron ODT 4 MG TAB PO PRN (14:38)
[2022-12-10] MEDS: Nicotine 21 MG PATCH TD SCH ×2 (14:50→15:18)
[2022-12-10] MEDS: guaiFENesin/Codeine 200 mg/20 mg 10 ml Cup PO PRN ×2 (15:25→20:23)
[2022-12-10] MEDS: Famotidine 20 MG TAB PO SCH (20:22)
[2022-12-11] MEDS: Ipratropium/Albuterol 3 ML NEB NEB SCH ×6 (02:41→22:59)
[2022-12-11 05:46] LABS: #Eosinphils 0.1 thou/uL (0.0-0.7); #Monocytes 0.7 thou/uL (0.11-0.59); #Neutrophils 5.8 thou/uL (1.40-6.50); %Basophils 0.3 % (0.0-1.0); %Eosinophils 0.9 % (0.0-10.0); %Lymphocytes 24.3 % (21.0-51.0); %Monocytes 7.7 % (0.0-10.0); %Neutrophils 66.2 % (42.0-75.0); Hematocrit 37.2 % (36.0-47.0); Hemoglobin 12.9 g/dL (12.0-16.0); Mean Corpuscular HGB CONC 34.7 g/dL (32.0-36.0); Mean Corpuscular Hemoglobin 29.6 pg (27.0-31.0); Mean Corpuscular Volume 85.3 fl (78.0-98.0); Mean Platelet Volume 10.7 fL (7.4-10.4); Platelet Count 302 10x3/uL (130-400); RBC Distribution Width 13.6 % (11.5-14.5); Red Blood Cell (RBC) Count 4.36 mill/uL (4.20-5.40); White Blood Cell (WBC) Count 8.7 10x3/uL (4.8-10.8)
[2022-12-11] MEDS: LevoFLOXacin 750 MG TAB PO SCH (06:12)
[2022-12-11 06:17] LABS: Anion Gap 11 mmol/L (10-20); BUN (Urea Nitrogen) 14 mg/dL (7.0-18.7); Calc. Creatinine Clearance 111 mL/min (70-130); Calcium 8.8 mg/dL (7.8-10.44); Carbon Dioxide 25 mmol/L (22-29); Chloride 104 mmol/L (98-107); Estimated GFR 94; Glucose 90 mg/dL (70-105); Potassium 3.3 mmol/L (3.5-5.1); Sodium 137 mmol/L (136-145)
[2022-12-11] MEDS: Mometasone 200 MCG/Formoterol 5 MCG 120 PUFF INHALER INH SCH ×2 (06:46→19:00)
[2022-12-11] MEDS: Famotidine 20 MG TAB PO SCH ×2 (08:43→19:41)
[2022-12-11] MEDS: predniSONE 20 MG TAB PO SCH (08:43)
[2022-12-11] MEDS: Benzonatate 100 MG CAP PO SCH ×3 (08:43→19:41)
[2022-12-11] MEDS ORDERED: Potassium Chloride 20 MEQ TAB PO SCH (09:15)
[2022-12-11] MEDS ORDERED: ALPRAZolam 0.25 MG TAB PO PRN (12:26)
[2022-12-11] MEDS: Nicotine 21 MG PATCH TD SCH (14:57)
[2022-12-11] MEDS ORDERED: ALPRAZolam 0.25 MG TAB PO SCH (16:15)
[2022-12-12] MEDS: Ipratropium/Albuterol 3 ML NEB NEB SCH ×4 (03:06→14:27)
[2022-12-12] MEDS: LevoFLOXacin 750 MG TAB PO SCH (05:29)
[2022-12-12] MEDS: Mometasone 200 MCG/Formoterol 5 MCG 120 PUFF INHALER INH SCH (07:31)
[2022-12-12] MEDS: Famotidine 20 MG TAB PO SCH (08:31)
[2022-12-12] MEDS: predniSONE 20 MG TAB PO SCH (08:31)
[2022-12-12] MEDS: Benzonatate 100 MG CAP PO SCH ×2 (08:31→17:34)
[2022-12-12] MEDS ORDERED: Regadenoson 0.4 MG/5 ML SYRINGE ONE (08:44)
[2022-12-12 15:22] VITALS: BP 121/66; TEMP 98.3
[2022-12-12] MEDS: Nicotine 21 MG PATCH TD SCH (17:35)
== END 2022-12-12 17:39 | disposition home or self-care (01) | DRG 191 ==
LOC: ERS 22:03 → ERHOLD 12-09 03:34 → INTOOBSV 12-09 03:34 → 2SW 12-09 18:48 → OBSVTOIN 12-10 17:20
PROVIDERS: ADMIT Family Medicine; ATTEND Internal Medicine
DX: J44.1 Chronic obstructive pulmonary disease with (acute) exacerbation (principal); E87.1 Hypo-osmolality and hyponatremia; R73.03 Prediabetes; F17.210 Nicotine dependence, cigarettes, uncomplicated; N28.89 Other specified disorders of kidney and ureter; E87.6 Hypokalemia; D72.829 Elevated white blood cell count, unspecified; R07.9 Chest pain, unspecified; Z20.822 Contact with and (suspected) exposure to COVID-19; Z79.899 Other long term (current) drug therapy; Z71.6 Tobacco abuse counseling; Z82.49 Family history of ischemic heart disease and other diseases of the circulatory system; Z90.89 Acquired absence of other organs
CPT/HCPCS: 36415; 36416; 71045; 71275; 78452; 80048; 80053; 80061; 83036; 83605; 83690; 83735; 83880; 84484; 85025; 85610; 85730; 87040; 93005; 93017; 93306; 94640; 94664; 96372; 96374; 96376; A9502; G0378; J1650; J1940; J2785; J2920; J2930; J7512; J7620; Q0162; Q9967